=== PATIENT | male | born 1955 | race Caucasian/White ===

== ENCOUNTER 2017-02-11 12:17 | Emergency (ER) | payer OTHER ==
[2017-02-11 12:36] VITALS: BP 179/101
--- NOTE | 2017-02-11 12:51 | UC ---
General HPI - HPI Summary HPI Summary: PT WAS VISITING HIS FATHER IN [place], RETURNED YESTERDAY AND REALIZED HE LEFT HIS MEDS IN [place]. PT RECENTLY LEFT [facility] DUE TO POOR INTERACTIONS WITH FRONT STAFF SO IS CURRENTLY WITHOUT A PCP. TAKES ATENOLOL 100MG DAILY, LISINOPRIL/HCTZ 20/25 DAILY AND CITALOPRAM 40MG DAILY. - History of Current Complaint Chief Complaint: UCMedRefill Stated Complaint: MED REFILL Time Seen by Provider: 02/11/17 12:41 Hx Obtained From: Patient - Allergy/Home Medications Allergies/Adverse Reactions: Allergies Allergy/AdvReac Type Severity Reaction Status Date / Time No Known Allergies Allergy Verified 02/11/17 12:36 PMH/Surg Hx/FS Hx/Imm Hx Cardiovascular History: Hypertension Psychological History: Anxiety - Surgical History Surgical History: None - Family History Known Family History: Positive: Hypertension - Social History Alcohol Use: Occasionally Substance Use Type: None Smoking Status (MU): Never Smoked Tobacco Review of Systems Constitutional: Negative Respiratory: Negative Cardiovascular: Negative Gastrointestinal: Negative All Other Systems Reviewed And Are Negative: Yes Physical Exam Triage Information Reviewed: Yes Appearance: Well-Appearing, No Pain Distress, Well-Nourished Vital Signs: Initial Vital Signs Temp 98.1 F 02/11/17 12:31 Pulse 65 02/11/17 12:31 Resp 16 02/11/17 12:31 BP 179/101 02/11/17 12:31 Pulse Ox 100 02/11/17 12:31 Vital Signs Reviewed: Yes Eyes: Positive: Conjunctiva Clear ENT: Positive: Hearing grossly normal Neck: Positive: Supple, Nontender, No Lymphadenopathy Respiratory Exam: Normal Cardiovascular Exam: Normal Abdomen Description: Positive: Soft Musculoskeletal: Positive: Strength Intact Neurological: Positive: Alert Psychological: Positive: Age Appropriate Behavior Skin: Negative: rashes Course/Dx - Course Course Of Treatment: MEDS REFILLED FOR 1 MONTH. - Differential Dx - Multi-Symptom Provider Diagnoses: MED REFILL Discharge - Discharge Plan Condition: Stable Disposition: HOME Prescriptions: Atenolol [Tenormin 100 MG] 100 mg PO DAILY #30 tab Citalopram TAB* [Celexa TAB*] 40 mg PO DAILY #30 tab Lisinopril/HCTZ 20/25(NF) [Zestoretic 20/25(NF)] 1 tab PO DAILY #30 tab Patient Education Materials: Medicine Refill (ED) Referrals: Glen Dunn MD [Primary Care Provider] - As Soon As Possible Additional Instructions: CALL THE NUMBER BELOW FOR ASSISTANCE IN ESTABLISHING WITH A PCP An additional resource available to assist in finding the appropriate physician for your health care needs is [facility] ([facility]). You may contact them by calling [phone].
== END 2017-02-11 13:10 | disposition home or self-care (01) ==
LOC: UCEAST 12:17
DX: I10 Essential (primary) hypertension (principal); F41.9 Anxiety disorder, unspecified; Z76.0 Encounter for issue of repeat prescription
CPT/HCPCS: 99212; G0463